=== PATIENT | male | born 1975 | race Caucasian/White ===

== ENCOUNTER 2016-03-07 06:12 | Emergency (ER) | payer OTHER ==
[~2016-03-07 06:12] MED LIST: BACTRIM DS 8001 TAB PO; CEPHALEXIN250 M1 PO; HYDROCODONE BIT1 T46 PO; NO HOME MEDICATIONS; ZOFRAN4 M1 PO
[2016-03-07] MEDS ORDERED: NORCO 325 MG-51 TA1 PO (09:17)
[2016-03-07] MEDS ORDERED: KETOROLAC TROME10 MG PO (09:17)
[2016-03-07 09:36] VITALS: BP 127/75
== END 2016-03-07 09:39 | disposition home or self-care (01) ==
LOC: ED 06:12
DX: N20.0 Calculus of kidney (principal)
CPT/HCPCS: J1885; J7030; Q9967

== ENCOUNTER → 2016-03-13 | Outpatient (CLI) | payer OTHER ==
[~2016-03-13] MED LIST changes: +KETOROLAC TROME10 MG PO; +NORCO 325 MG-51 TA1 PO
== END ==
LOC: LAB 17:14
DX: N20.0 Calculus of kidney (principal); M54.5 Low back pain

== ENCOUNTER 2017-11-24 08:00 | Emergency (ER) | payer OTHER ==
[~2017-11-24] VITALS: Ht 175.3 cm; Wt 81.8 kg
[2017-11-24 09:03] LABS: URINE APPEARANCE CLEAR; URINE BILIRUBIN NEGATIVE (NEGATIVE); URINE BLOOD NEGATIVE (NEGATIVE); URINE COLOR YELLOW; URINE GLUCOSE NEGATIVE (NEGATIVE); URINE KETONE NEGATIVE (NEGATIVE); URINE LEUKOCYTE ESTERASE NEGATIVE (NEGATIVE); URINE MUCUS PRESENT (NOT PRESENT); URINE NITRATE NEGATIVE (NEGATIVE); URINE PROTEIN(semi-quant) 1+ mg/dL (NEGATIVE); URINE UROBILINOGEN NORMAL (NORMAL)
[2017-11-24 09:10] LABS: BASO # 0.1 (0.02-0.10); EOS # 0.1 (0.04-0.40); EOS % 1.3 % (0.0-4.0); HEMATOCRIT 43.9 % (42.0-52.0); HEMOGLOBIN 15.4 g/dL (13.5-18.0); LYMPH# 1.5 (1.50-4.00); MEAN CELL VOLUME 86 fl (78-100); MEAN CORPUSCULAR HEMOGLOBIN 30 pg (27-31); MEAN CORPUSCULAR HGB CONC 35 g/dL (33-37); MEAN PLATELET VOLUME 10.2 fl (7.4-10.4); MONO # 0.6 (0.20-0.80); NEU # 6.5 (1.40-6.50); PLATELET COUNT 342 K/mm3 (130-400); RED CELL DISTRIBUTION WIDTH 12.8 % (11.5-14.5); WHITE BLOOD COUNT 8.7 K/mm3 (4.8-10.8)
[2017-11-24 09:19] LABS: ALBUMIN 4.4 g/dL (3.5-5.0); CALCIUM 9.4 mg/dL (8.4-10.2); TOTAL BILIRUBIN 0.9 mg/dL (0.2-1.3); TOTAL PROTEIN 7.5 g/dL (6.3-8.2)
[2017-11-24 10:56] VITALS: BP 113/82
== END 2017-11-24 10:52 | disposition home or self-care (01) ==
LOC: ED 08:00
PROVIDERS: Nurse Practitioner Primary Care
DX: E86.0 Dehydration (principal); R53.81 Other malaise
CPT/HCPCS: J2405; J7030

== ENCOUNTER → 2018-05-13 | Outpatient (CLI) | payer OTHER | LOC: LAB 12:33 | DX: M43.6 Torticollis (principal); K21.0 Gastro-esophageal reflux disease with esophagitis; Z86.69 Personal history of other diseases of the nervous system and sense organs ==

== ENCOUNTER → 2018-05-24 | Day surgery (SDC) | payer OTHER | LOC: MSO 09:05 | DX: K21.9 Gastro-esophageal reflux disease without esophagitis (principal); G43.909 Migraine, unspecified, not intractable, without status migrainosus | CPT/HCPCS: 00731; J2704; J3010; J7120 ==

== ENCOUNTER → 2022-01-14 | Outpatient (CLI) | payer OTHER | LOC: LAB 08:47 | DX: J02.9 Acute pharyngitis, unspecified (principal) ==

== ENCOUNTER 2024-04-26 09:05 | Emergency (ER) | payer OTHER ==
[~2024-04-26] VITALS: Ht 12.7 cm; Wt 79.5 kg
[~2024-04-26 09:05] MED LIST changes: +BACTRIM DS TAB1 EACH PO; +CENTANY30 GM TP; +HYDROXYZINE HCL25 M1 PO
[2024-04-26] MEDS ORDERED: PREDNISONE10 MG PO (09:42)
[2024-04-26] MEDS ORDERED: methylPREDNISolone acetate 80 MG/ML VIAL IM ONE (09:45)
[2024-04-26 09:47] VITALS: BP 113/85
== END 2024-04-26 09:47 | disposition home or self-care (01) ==
LOC: ED 09:05
DX: L25.9 Unspecified contact dermatitis, unspecified cause (principal)
CPT/HCPCS: J1010